=== PATIENT | female | born 1995 | race African-American/Black ===

== ENCOUNTER → 2016-07-28 | Outpatient (CLI) | payer OTHER ==
--- NOTE | 2016-07-28 17:57 | KCIC ---
Left breast ultrasound: Reason for examination: Pea-sized lump at the 2 o'clock position. Patient is 20 weeks . Ultrasound examination of the left breast was performed with attention to the area clinical concern. In the 2 o'clock position 9 centimeters from the nipple and corresponding to the area of clinical concern, there is a hypoechoic circumscribed lesion in parallel orientation measuring 9.6 millimeters in greatest dimension and showing some increased echogenicity centrally and some increased vascular flow centrally. The appearance suggests an intramammary lymph node. In the 2 o'clock position 4 centimeters from the nipple, there is also a small hypoechoic 5.4 by 5.5 millimeter hypoechoic lesion which may represent a small fibroadenoma. No other cystic or solid lesions are seen. No abnormal lymph nodes at the axilla. Impression: Small nodule at the 2 o'clock position 9 centimeters from the nipple which may represent a small intramammary lymph node. Small nodule at the 2 o'clock position 4 centimeters from the nipple which may represent a small fibroadenoma. Recommend re-evaluation in 3 months with ultrasound. BI-RADS category 3: Probably benign. This patient's information has been entered into a reminder system for the patient to be notified with the results of this examination and a target date for her next mammograms. Electronically signed by: Mi Pritchett MD (Jul 28, 2016 17:55:57)
== END | disposition home or self-care (01) ==
LOC: KCIC US 12:53
PROVIDERS: ATTEND Advanced Practice Midwife
DX: O92.29 Other disorders of breast associated with pregnancy and the puerperium (principal); Z3A.20 20 weeks gestation of pregnancy
CPT/HCPCS: 76641

== ENCOUNTER 2016-12-25 03:50 | Emergency (ER) | payer OTHER ==
[~2016-12-25] VITALS: Ht 154.9 cm; Wt 68.9 kg
--- NOTE | 2016-12-25 04:17 | PHYS DOC ---
Past Medical History Past Medical History: No Pertinent History Past Surgical History: No Surgical History Alcohol Use: None Drug Use: None Adult General Chief Complaint Chief Complaint: CHEST WALL PAIN HPI HPI Patient is a 21 year old F who presents with right-sided chest pain. Patient is status post spontaneous vaginal delivery 2 weeks prior and woke up this morning to feed her daughter and developed right-sided chest pain. Patient states her to take a big deep breath. Patient has no cardiac history. Patient has no history of a PE or DVT. Patient denies any fevers. Patient denies any nausea/vomiting/diarrhea. Review of Systems Review of Systems GEN: Denies fevers, chills, sweats HEENT: Denies blurred vision, sore throat CV: chest pain RESP: Denies shortness of air, cough GI: Denies n/v/d NEURO: Denies confusion, dizziness MSK: Denies weakness, joint pain/swelling Current Medications Current Medications Current Medications Medications (Trade) Dose Ordered Sig/Dov Start Time Stop Time Status Last Admin Dose Admin Ketorolac Tromethamine (Toradol Im) 60 mg 1X ONCE 12/25/16 04:30 12/25/16 04:31 DC 12/25/16 04:26 60 MG Allergies Allergies Allergies Coded Allergies Type Severity Reaction Last Updated Verified No Known Drug Allergies 12/25/16 No Physical Exam Physical Exam GEN.: No apparent distress. Alert and oriented. HEENT: Head is normocephalic, atraumatic NECK: Supple. LUNGS: CTAB. HEART: RRR, S1, S2 present. Peripheral pulses intact ABDOMEN: Soft, nontender. Positive bowel sounds. EXTREMITIES: Without any cyanosis. NEUROLOGIC: Normal speech, normal tone PSYCHIATRIC: Normal affect, normal mood. SKIN: No ulcerations Current Patient Data Vital Signs Vital Signs Date Time Temp Pulse Resp B/P (MAP) Pulse Ox O2 Delivery O2 Flow Rate FiO2 12/25/16 04:00 98.0 61 122/85 (97) 98 Room Air 98.0 Lab Values Laboratory Tests Test 12/25/16 05:20 D-Dimer (Mildred) 0.30 ug/mlFEU (0.00-0.50) EKG EKG 0425: Normal sinus rhythm rate of 62 no STEMI [] Radiology/Procedures Radiology/Procedures Chest x-ray NAD [] Course & Med Decision Making Course & Med Decision Making Pertinent Labs and Imaging studies reviewed. (See chart for details) ED course: Patient was seen and examined emergency room chest x-ray, EKG, d-dimer was ordered 0556: Patient was reexamined which her chest pain is resolved patient feels much better. Updated patient on x-ray EKG results. Patient is stable to be discharged home. MDM: After reviewing the chart, CC/HPI/PMH, physical exam, [lab results], [ radiological results], I do not believe the patient's having acute PA, PE, low suspicion for acute thoracic aortic dissection. On reexamination the patient is better and she is ready to go home. Recommended short-term follow-up with her PCP in one to 2 days. Additional verbal discharge instructions were provided to the patient and that if symptoms get worse or any new symptoms arise that are worrisome to the patient she is to return to the emergency room immediately [] Dragon Disclaimer Dragon Disclaimer This electronic medical record was generated, in whole or in part, using a voice recognition dictation system. Departure Departure Impression: Primary Impression: Chest pain Disposition: 01 HOME, SELF-CARE Condition: IMPROVED Referrals: NO PCP (PCP) Patient Instructions: Chest Pain (Nonspecific) Additional Instructions: Please follow up with your family doctor in the next one to 2 days HAMZAH BETHEA DO Dec 25, 2016 04:17
[2016-12-25] MEDS ORDERED: KETOROLAC TROMETHAMINE 60 MG/2 ML INJ. IM ONE (04:30)
[2016-12-25 06:35] VITALS: BP 149/74
--- NOTE | 2016-12-25 09:24 | RAD ---
Indication chest pain. PA and lateral views of the chest were obtained. No prior imaging of the chest is available. Preliminary critical results were communicated to Dr. Velasquez fall. Pain. AP oblique and lateral views of the right elbow were obtained., in the emergency room, at 0915. No prior imaging of the chest is available. The heart and pulmonary vessels are normal. The lungs are clear. There is pneumoperitoneum below the right hemidiaphragm. The etiology is unclear but ruptured viscus is not excluded. There is no pleural fluid. No pneumothorax is seen. IMPRESSION: Clear chest. Pneumoperitoneum
--- NOTE | 2016-12-25 10:11 | EKG ---
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
== END 2016-12-25 06:39 | disposition home or self-care (01) ==
LOC: ER 03:50
DX: O90.89 Other complications of the puerperium, not elsewhere classified (principal); R07.89 Other chest pain
CPT/HCPCS: 36415; 71020; 85379; 93005; 96372; 99285; J1885

== ENCOUNTER 2017-04-12 16:09 | Emergency (ER) | payer OTHER ==
[~2017-04-12] VITALS: Ht 154.9 cm; Wt 73.5 kg
[2017-04-12 16:25] VITALS: BP 110/81
[2017-04-12] MEDS ORDERED: predniSONE 20 MG TABLET PO ONE (16:30)
[2017-04-12] MEDS ORDERED: FAMOTIDINE 20 MG TABLET. PO ONE (16:30)
[2017-04-12] MEDS ORDERED: diphenhydrAMINE HCL 25 MG CAPSULE PO ONE (16:30)
[2017-04-12] MEDS ORDERED: FAMO20TA5 PO (16:35)
[2017-04-12] MEDS ORDERED: PRED50TA PO (16:35)
[2017-04-12] MEDS ORDERED: DIPH25CA58 PO (16:35)
--- NOTE | 2017-04-12 16:36 | PHYS DOC ---
Past Medical History Past Medical History: No Pertinent History Past Surgical History: No Surgical History Alcohol Use: None Drug Use: None Adult General Chief Complaint Chief Complaint: ALLERGIC REACTION HPI HPI Patient is a 21 year old female who presents with a rash on her face that began today after holding a guinea pig. Patient denies any difficulty breathing or swallowing. Denies any throat swelling or lip swelling or tongue swelling. Review of Systems Review of Systems Constitutional: Denies fever or chills [] Eyes: Denies change in visual acuity, redness, or eye pain [] HENT: Denies nasal congestion or sore throat [] Respiratory: Denies cough or shortness of breath [] Cardiovascular: No additional information not addressed in HPI [] GI: Denies abdominal pain, nausea, vomiting, bloody stools or diarrhea [] : Denies dysuria or hematuria [] Musculoskeletal: Denies back pain or joint pain [] Integument: rash on her face Neurologic: Denies headache, focal weakness or sensory changes [] All other systems were reviewed and found to be within normal limits, except as documented in this note. Allergies Allergies Allergies Coded Allergies Type Severity Reaction Last Updated Verified No Known Drug Allergies 12/25/16 No Physical Exam Physical Exam Constitutional: Well developed, well nourished, no acute distress, non-toxic appearance. [] HENT: Normocephalic, atraumatic, bilateral external ears normal, oropharynx moist, no oral exudates, nose normal. Airway is open. Eyes: PERRLA, EOMI, conjunctiva normal, no discharge. [] Neck: Normal range of motion, no tenderness, supple, no stridor. [] Cardiovascular:Heart rate regular rhythm, no murmur [] Lungs & Thorax: Bilateral breath sounds clear to auscultation [] Abdomen: Bowel sounds normal, soft, no tenderness, no masses, no pulsatile masses. [] Skin: Warm, dry, mild amount of nonerythematous rash on patient's face. [] Back: No tenderness, no CVA tenderness. [] Extremities: No tenderness, no cyanosis, no clubbing, ROM intact, no edema. [] Neurologic: Alert and oriented X 3, normal motor function, normal sensory function, no focal deficits noted. [] Psychologic: Affect normal, judgement normal, mood normal. [] EKG EKG [] Radiology/Procedures Radiology/Procedures [] Course & Med Decision Making Course & Med Decision Making Pertinent Labs and Imaging studies reviewed. (See chart for details) Patient has contact dermatitis rash on her face after touching a guinea pig. She was given prednisone Pepcid and Benadryl in the ED and discharged with the same. Provided return precautions including the need to return to the ED if she develops any difficulty breathing, throat tongue or lip swelling. Dragon Disclaimer Dragon Disclaimer This electronic medical record was generated, in whole or in part, using a voice recognition dictation system. Departure Departure Impression: Primary Impression: Contact dermatitis Disposition: HOME, SELF-CARE Condition: STABLE Referrals: UNKNOWN PCP NAME (PCP) follow up with your doctor in one week Patient Instructions: Contact Dermatitis, [id number] Additional Instructions: You were seen for contact dermatitis rash. Please take Benadryl every 4 hours, prednisone daily and Pepcid. Please return to the Ed if you have any difficulty breathing, throat, tongue or lip swelling. Follow up with your doctor in one week. Scripts Famotidine (FAMOTIDINE) 20 Mg Tablet 20 MG PO DAILY, #14 TAB Prov: HARRY MORAN APRN 04/12/17 Prednisone (PREDNISONE) 50 Mg Tablet 1 TAB PO DAILY, #4 TAB Prov: HARRY MORAN APRN 04/12/17 Diphenhydramine Hcl (BENADRYL) 25 Mg Capsule 1 CAP PO Q4HRS W/A Y for RASH, #30 CAP 1 Refill Prov: HARRY MORAN APRN 04/12/17 Problem Qualifiers Primary Impression: Contact dermatitis Contact dermatitis type: unspecified Contact dermatitis trigger: unspecified trigger Qualified Codes: L25.9 - Unspecified contact dermatitis, unspecified cause HARRY MORAN APRN Apr 12, 2017 16:36
== END 2017-04-12 16:55 | disposition home or self-care (01) ==
LOC: ER 16:09
DX: L25.9 Unspecified contact dermatitis, unspecified cause (principal)
CPT/HCPCS: 99284; J7512; Q0163

== ENCOUNTER → 2017-05-24 | Outpatient (CLI) | payer OTHER | END | disposition home or self-care (01) | LOC: KCIC US 14:42 | DX: N63.21 Unspecified lump in the left breast, upper outer quadrant (principal) | CPT/HCPCS: 76641 ==

== ENCOUNTER 2017-06-26 10:06 | Emergency (ER) | payer SELFPAY, OTHER ==
[2017-06-26 11:09] LABS: INFLUENZA A PATIENT NEGATIVE (NEGATIVE); INFLUENZA B PATIENT NEGATIVE (NEGATIVE); OBC FLU VALID
== END 2017-06-26 11:41 | disposition home or self-care (01) ==
LOC: ER 10:06
DX: J06.9 Acute upper respiratory infection, unspecified (principal); B34.9 Viral infection, unspecified
CPT/HCPCS: 87804; 87804-59; 99284

== ENCOUNTER 2017-10-09 20:34 | Emergency (ER) | payer SELFPAY ==
[2017-10-09] MEDS: SMZ/TMP 800/160MG TABLET. PO (21:24)
[2017-10-09] MEDS: CEPHALEXIN 250 MG CAPSULE. PO (21:24)
[2017-10-09] MEDS: IBUPROFEN 800 MG TABLET. PO (21:25)
== END 2017-10-09 21:29 | disposition home or self-care (01) ==
LOC: ER 20:34
DX: L03.116 Cellulitis of left lower limb (principal)
CPT/HCPCS: 99284

== ENCOUNTER 2018-07-20 08:18 | Emergency (ER) | payer SELFPAY ==
[~2018-07-20] VITALS: Ht 152.4 cm; Wt 70.3 kg
[~2018-07-20 08:18] MED LIST: BENZ100C PO; CEPH-264 PO; DIPH25CA58 PO; FAMO20TA5 PO; IBUP-1060 PO; PRED50TA PO; PROAIR RESPICL90 MCG IH; SULF1TAB24 PO
--- NOTE | 2018-07-20 08:48 | PHYS DOC ---
Past Medical History Past Medical History: No Pertinent History Past Surgical History: No Surgical History Alcohol Use: None Drug Use: None Adult General Chief Complaint Chief Complaint: RIB PAIN [facility] HPI Patient is a 22 year old female with no significant medical history who presents to the ED today complaining of 8 out of 10 sharp intermittent left lateral mid rib pain that began a week ago, patient states the pain is worse when she coughs or takes a deep breath. Denies any known injury. She states she' s been coughing for a couple days. Patient states she does not know if she is or not, her last menstrual cycle was May 30, 2018. Patient denies any abdominal pain, nausea, vomiting. Denies any shortness of breath. Patient is not on any control hormones, patient denies any unilateral leg pain, denies any recent hospitalization for surgery, denies any hemoptysis, denies any previous history of PEs or DVTs. Review of Systems Review of Systems Constitutional: Denies fever or chills [] Eyes: Denies change in visual acuity, redness, or eye pain [] HENT: Denies nasal congestion or sore throat [] Respiratory: Reports left lateral rib pain and cough denies shortness of breath [] Cardiovascular: No additional information not addressed in HPI [] GI: Denies abdominal pain, nausea, vomiting, bloody stools or diarrhea [] : Denies dysuria or hematuria [] Musculoskeletal: Denies back pain or joint pain [] Integument: Denies rash or skin lesions [] Neurologic: Denies headache, focal weakness or sensory changes [] All other systems were reviewed and found to be within normal limits, except as documented in this note. Allergies Allergies Allergies Coded Allergies Type Severity Reaction Last Updated Verified No Known Drug Allergies 12/25/16 No Physical Exam Physical Exam Constitutional: Well developed, well nourished, no acute distress, non-toxic appearance. [] HENT: Normocephalic, atraumatic, bilateral external ears normal, oropharynx moist, no oral exudates, nose normal. [] Eyes: PERRLA, EOMI, conjunctiva normal, no discharge. [] Neck: Normal range of motion, no tenderness, supple, no stridor. [] Cardiovascular:Heart rate regular rhythm, no murmur [] Lungs & Thorax: Bilateral breath sounds clear to auscultation [] Abdomen: Bowel sounds normal, soft, no tenderness, no masses, no pulsatile masses. [] Skin: Warm, dry, no erythema, no rash. [] Back: No tenderness, no CVA tenderness. [] Extremities: No tenderness, no cyanosis, no clubbing, ROM intact, no edema. [] Neurologic: Alert and oriented X 3, normal motor function, normal sensory function, no focal deficits noted. [] Psychologic: Affect normal, judgement normal, mood normal. [] Current Patient Data Vital Signs Vital Signs Date Time Temp Pulse Resp B/P (MAP) Pulse Ox O2 Delivery O2 Flow Rate FiO2 07/20/18 08:50 98.1 64 16 101/57 (72) 98 Room Air 98.1 Lab Values Laboratory Tests Test 07/20/18 08:33 07/20/18 08:46 Urine Collection Type Unknown Urine Color Yellow Urine Clarity Clear Urine pH 5.5 Urine Specific [place] 1.015 Urine Protein Negative mg/dL (NEG-TRACE) Urine Glucose (UA) Negative mg/dL (NEG) Urine Ketones (Stick) Negative mg/dL (NEG) Urine Blood Negative (NEG) Urine Nitrite Negative (NEG) Urine Bilirubin Negative (NEG) Urine Urobilinogen Dipstick 1.0 mg/dL (0.2 mg/dL) Urine Leukocyte Esterase Negative (NEG) Urine RBC 0 /HPF (0-2) Urine WBC 1-4 /HPF (0-4) Urine Squamous Epithelial Cells Many /LPF Urine Bacteria Few /HPF (0-FEW) POC Urine HCG, Qualitative Hcg positive (Negative) EKG EKG [] Radiology/Procedures Radiology/Procedures [] Course & Med Decision Making Course & Med Decision Making Pertinent Labs and Imaging studies reviewed. (See chart for details) This is a 22-year-old female patient presenting to the ED today with left lateral rib pain worse on deep breaths. Also complaining of a cough. No known injury. Positive urine hCG. Informed patient she is . She started stating we can do a chest x-ray regardless of her because she is going to perform an . Informed patient we would prefer not to do a chest x-ray on somebody who is , if she is planning to perform an we will give her time to think about her plan and then after the we can do a chest xray, informed her it is too early to assume she will proceed with the . Right now her lungs are clear, temperature 98.1 heart rate 64 respirations 16 O2 sats 98% on room air BP 101/57. Informed patient considering her vitals I do not feel we should push for chest x-ray. She requested her discharge papers. She states she has already been taking hydrocodone from her boyfriend. Informed her right now she is and hydrocodone is not the best thing to take in . Informed her i highly suspect she has Pleurisy. Instructed to f/u with her PCP, She states she'll follow up with an clinic. Dragon Disclaimer Pamellaon Disclaimer This electronic medical record was generated, in whole or in part, using a voice recognition dictation system. Departure Departure Impression: Primary Impression: Pleurisy Disposition: 01 HOME, SELF-CARE Condition: STABLE Referrals: RONALD VALENZUELA APRN (PCP) follow up with your OBGYN for your Patient Instructions: Pleurisy, [id number] Additional Instructions: You were evaluated in the emergency room for rib pain, you are also . Please follow-up with your own COMPUTER TECHNICIAN as soon as possible. Use Tylenol for pain. Hydrocodone is not the best medicine to use when . Scripts Albuterol Sulfate (VENTOLIN HFA INHALER) 18 Gm Hfa.aer.ad 2 PUFF INH Q4HRS for FOR ASTHMA, #1 INHALER 0 Refills Prov: HARRY MORAN APRN 07/20/18 HARRY MORAN APRN Jul 20, 2018 08:48
[2018-07-20 08:49] LABS: BILIRUBIN,URINE NEGATIVE (NEG); CLARITY,URINE CLEAR; COLOR,URINE YELLOW; NITRITE,URINE NEGATIVE (NEG); PH,URINE 5.5; PROTEIN,URINE NEGATIVE (NEG-TRACE)
[2018-07-20 08:50] VITALS: BP 101/57
[2018-07-20 09:53] LABS: BACTERIA,URINE FEW /HPF (0-FEW); RBC,URINE 0 /HPF (0-2); SQUAMOUS EPITHELIAL CELL,UR MANY /LPF
[2018-07-20] MEDS ORDERED: VENTOLIN HFA18 GM INH (10:22)
== END 2018-07-20 10:35 | disposition home or self-care (01) ==
LOC: ER 08:18
DX: O99.511 Diseases of the respiratory system complicating pregnancy, first trimester (principal); R09.1 Pleurisy; Z3A.01 Less than 8 weeks gestation of pregnancy
CPT/HCPCS: 81001; 81025; 99283; 99284-25

== ENCOUNTER 2018-07-30 09:28 | Emergency (ER) | payer SELFPAY ==
[~2018-07-30] VITALS: Ht 160 cm; Wt 70.3 kg
[~2018-07-30 09:28] MED LIST changes: +VENTOLIN HFA18 GM INH
--- NOTE | 2018-07-30 09:57 | PHYS DOC ---
Past Medical History Past Medical History: No Pertinent History Past Surgical History: No Surgical History Alcohol Use: None Drug Use: None Adult General Chief Complaint Chief Complaint: RIB PAIN HPI HPI Patient is a 22 year old female who presents with worsening left-sided chest discomfort for the past 2 weeks. Worse with deep breaths. Worse with cough. Denies any fever reports that the pain is severe and sharp. It has not moved in location in the past 2 weeks. Denies any fever. Denies any lower extremity swelling. She was seen for this 2 weeks ago and has not achieved any significant pain relief with the medications administered. It is noted that she had a test that was positive 2 weeks ago. Patient said that she had an elective 2 days ago.[] Review of Systems Review of Systems Constitutional: Denies fever or chills [] Eyes: Denies change in visual acuity, redness, or eye pain [] HENT: Denies nasal congestion or sore throat [] Respiratory: See history of present illness[] Cardiovascular: See history of present illness[] GI: Denies abdominal pain, nausea, vomiting, bloody stools or diarrhea [] : Denies dysuria or hematuria [] Musculoskeletal: Denies back pain or joint pain [] Integument: Denies rash or skin lesions [] Neurologic: Denies headache, focal weakness or sensory changes [] Endocrine: Denies polyuria or polydipsia [] All other systems were reviewed and found to be within normal limits, except as documented in this note. Current Medications Current Medications Current Medications Medications (Trade) Dose Ordered Sig/Dov Start Time Stop Time Status Last Admin Dose Admin Info (CONTRAST GIVEN -- Rx MONITORING) 1 each PRN DAILY PRN 07/30/18 11:00 08/01/18 10:59 Iohexol (Omnipaque 350 Mg/ml) 75 ml 1X ONCE 07/30/18 10:45 07/30/18 10:46 DC 07/30/18 10:59 75 ML Ketorolac Tromethamine (Toradol 15mg Vial) 15 mg 1X ONCE 07/30/18 10:00 07/30/18 10:01 DC 07/30/18 10:12 15 MG Allergies Allergies Allergies Coded Allergies Type Severity Reaction Last Updated Verified No Known Drug Allergies 12/25/16 No Physical Exam Physical Exam Constitutional: Well developed, well nourished, no acute distress, non-toxic appearance. [] HENT: Normocephalic, atraumatic, bilateral external ears normal, oropharynx moist, no oral exudates, nose normal. [] Eyes: PERRLA, EOMI, conjunctiva normal, no discharge. [] Neck: Normal range of motion, no tenderness, supple, no stridor. [] Cardiovascular:Heart rate regular rhythm, no murmur [] Lungs & Thorax: Bilateral breath sounds clear to auscultation, chest has tenderness to palpation anterior axillary line in the sixth to seventh rib area. There is no crepitus, no step-off, no subcutaneous emphysema. [] Abdomen: Bowel sounds normal, soft, no tenderness, no masses, no pulsatile masses. [] Skin: Warm, dry, no erythema, no rash. [] Back: No tenderness, no CVA tenderness. [] Extremities: No tenderness, no cyanosis, no clubbing, ROM intact, no edema. [] Neurologic: Alert and oriented X 3, normal motor function, normal sensory function, no focal deficits noted. [] Psychologic: Affect normal, judgement normal, mood normal. [] Current Patient Data Vital Signs Vital Signs Date Time Temp Pulse Resp B/P (MAP) Pulse Ox O2 Delivery O2 Flow Rate FiO2 07/30/18 09:39 97.7 64 20 112/62 (79) 100 Room Air 97.7 Lab Values Laboratory Tests Test 07/30/18 09:00 07/30/18 10:10 POC Urine HCG, Qualitative Hcg positive (Negative) White Blood Count 5.9 x10^3/uL (4.0-11.0) Red Blood Count 4.06 x10^6/uL (3.50-5.40) Hemoglobin 12.2 g/dL (12.0-15.5) Hematocrit 37.4 % (36.0-47.0) Mean Corpuscular Volume 92 fL (79-100) Mean Corpuscular Hemoglobin 30 pg (25-35) Mean Corpuscular Hemoglobin Concent 33 g/dL (31-37) Red Cell Distribution Width 16.9 % (11.5-14.5) H Platelet Count 213 x10^3/uL (140-400) Neutrophils (%) (Auto) 66 % (31-73) Lymphocytes (%) (Auto) 28 % (24-48) Monocytes (%) (Auto) 5 % (0-9) Eosinophils (%) (Auto) 1 % (0-3) Basophils (%) (Auto) 0 % (0-3) Neutrophils # (Auto) 3.9 x10^3uL (1.8-7.7) Lymphocytes # (Auto) 1.6 x10^3/uL (1.0-4.8) Monocytes # (Auto) 0.3 x10^3/uL (0.0-1.1) Eosinophils # (Auto) 0.1 x10^3/uL (0.0-0.7) Basophils # (Auto) 0.0 x10^3/uL (0.0-0.2) Sodium Level 140 mmol/L (136-145) Potassium Level 3.8 mmol/L (3.5-5.1) Chloride Level 103 mmol/L (98-107) Carbon Dioxide Level 23 mmol/L (21-32) Anion Gap 14 (6-14) Blood Urea Nitrogen 8 mg/dL (7-20) Creatinine 0.6 mg/dL (0.6-1.0) Estimated GFR (Cockcroft-Gault) 148.6 Glucose Level 82 mg/dL (70-99) Calcium Level 8.9 mg/dL (8.5-10.1) Laboratory Tests 07/30/18 10:10 Laboratory Tests 07/30/18 10:10 EKG EKG [] Radiology/Procedures Radiology/Procedures CT arteriogram of the chest HISTORY: Left-sided respiratory chest pain CT arteriogram of the chest was done using 75 mL Omnipaque 350 contrast. Sagittal and coronal MIP images were reconstructed. Thyroid is homogeneous. There is no mediastinal adenopathy. There is no effusion. Visualized portions of the liver and spleen are normal in appearance. Adrenal glands are normal. Lungs are free of infiltrates. There is no effusion. This study is negative for evidence of a pulmonary embolus. Sagittal and coronal MIP images were reconstructed. IMPRESSION: 1. No infiltrates noted. 2. Negative for a pulmonary embolus.[] Course & Med Decision Making Course & Med Decision Making Pertinent Labs and Imaging studies reviewed. (See chart for details) ED course: Patient arrived, was placed in bed, and tolerated exam well. She had IV access established was given IV pain medicine as well as was transported to and from [place] without any complications. After the return of lab and imaging findings, these were discussed with the patient voiced understanding. All questions were answered. Patient was discharged in improved condition. Medical decision making: Patient has a positive test but reports that she had an elective termination 2 days ago. Do not see any evidence of a pneumonia, pneumothorax pulmonary embolism nor other significant life threats. This does not present as a cardiac etiology for this discomfort.[] Dragon Disclaimer Dragon Disclaimer This electronic medical record was generated, in whole or in part, using a voice recognition dictation system. Departure Departure Impression: Primary Impression: Chest pain Disposition: HOME, SELF-CARE Condition: IMPROVED Referrals: RONALD VALENZUELA APRN (PCP) Follow-up in 2 days Patient Instructions: Chest Pain (Nonspecific) Additional Instructions: Follow-up with your regular doctor in 2 days. If you do not have a regular doctor a list of local clinics will be provided for you. Return to the ER if worsening discomfort or any other concerns. Scripts Prednisone (PREDNISONE) 50 Mg Tablet 50 MG PO DAILY for 7 Days, #7 TAB Prov: JAYE SIMONS DO 07/30/18 Diflunisal (DIFLUNISAL) 500 Mg Tablet 500 MG PO BID, #20 TAB Prov: JAYE SIMONS DO 07/30/18 Problem Qualifiers Primary Impression: Chest pain Chest pain type: unspecified Qualified Codes: R07.9 - Chest pain, unspecified JAYE SIMONS DO Jul 30, 2018 09:57
[2018-07-30] MEDS ORDERED: KETOROLAC 15 MG/ML VIAL. IV ONE (10:00)
[2018-07-30 10:26] LABS: BASO % 0 % (0-3); EOS # 0.1 x10^3/uL (0.0-0.7); EOS % 1 % (0-3); HEMATOCRIT 37.4 % (36.0-47.0); HEMOGLOBIN 12.2 g/dL (12.0-15.5); LYMPH # 1.6 x10^3/uL (1.0-4.8); LYMPH % 28 % (24-48); MEAN CORPUSCULAR HEMOGLOBIN 30 pg (25-35); MEAN CORPUSCULAR HGB CONC 33 g/dL (31-37); MEAN CORPUSCULAR VOLUME 92 fL (79-100); MONO # 0.3 x10^3/uL (0.0-1.1); MONO % 5 % (0-9); NEUT # 3.9 x10^3uL (1.8-7.7); NEUT % 66 % (31-73); PLATELET COUNT 213 x10^3/uL (140-400); RED BLOOD COUNT 4.06 x10^6/uL (3.50-5.40); RED CELL DISTRIBUTION WIDTH 16.9 % (11.5-14.5); WHITE BLOOD COUNT 5.9 x10^3/uL (4.0-11.0)
[2018-07-30 10:32] LABS: CALCIUM 8.9 mg/dL (8.5-10.1); CREATININE 0.6 mg/dL (0.6-1.0); GFR 148.6; POTASSIUM 3.8 mmol/L (3.5-5.1)
[2018-07-30] MEDS ORDERED: IOHEXOL 350 MG/ML 100 ML VIAL. IV ONE (10:45)
[2018-07-30] MEDS ORDERED: CONTRAST GIVEN. MC PRN (11:00)
--- NOTE | 2018-07-30 11:26 | RAD ---
CT arteriogram of the chest HISTORY: Left-sided respiratory chest pain CT arteriogram of the chest was done using 75 mL Omnipaque 350 contrast. Sagittal and coronal MIP images were reconstructed. Thyroid is homogeneous. There is no mediastinal adenopathy. There is no effusion. Visualized portions of the liver and spleen are normal in appearance. Adrenal glands are normal. Lungs are free of infiltrates. There is no effusion. This study is negative for evidence of a pulmonary embolus. Sagittal and coronal MIP images were reconstructed. IMPRESSION: 1. No infiltrates noted. 2. Negative for a pulmonary embolus. PQRS Compliance Statement: One or more of the following individualized dose reduction techniques were utilized for this examination: 1. Automated exposure control 2. Adjustment of the mA and/or kV according to patient size 3. Use of iterative reconstruction technique Electronically signed by: Kosta Hebert MD (07/30/2018 11:23 AM) [facility]
[2018-07-30] MEDS ORDERED: DIFL500T PO (11:40)
[2018-07-30] MEDS ORDERED: PRED50TA PO (11:40)
[2018-07-30 12:15] VITALS: BP 108/61
== END 2018-07-30 12:16 | disposition home or self-care (01) ==
LOC: ER 09:28
DX: R07.1 Chest pain on breathing (principal); Z33.2 Encounter for elective termination of pregnancy
CPT/HCPCS: 36415; 71275; 80048; 81025; 84702; 85025; 99284; J1885; Q9967

== ENCOUNTER 2019-06-20 19:10 | Emergency (ER) | payer MEDICAID ==
[~2019-06-20] VITALS: Ht 154.9 cm; Wt 75.0 kg
[~2019-06-20 19:10] MED LIST changes: +DIFL500T PO
[2019-06-20 19:24] VITALS: BP 118/73
--- NOTE | 2019-06-20 19:40 | PHYS DOC ---
Past Medical History Past Medical History: No Pertinent History (JOVI KNIGHT APRN) Past Surgical History: No Surgical History (JOVI KNIGHT APRN) Alcohol Use: None Drug Use: None (JOVI KNIGHT APRN) Attending Signature I have participated in the care of this patient and I have reviewed and agree with all pertinent clinical information above including history, exam, and recommendations. (LEONCIO PACHECO MD) Adult General Chief Complaint Chief Complaint: MULTIPLE COMPLAINTS HPI HPI Patient is a 23 year old healthy appearing female who presents with mid-sternal chest pain and tingling down both arms and in her throat that started 1 hour prior to arrival. The patient denies any medical history. The patient states she has had a runny nose and a dry cough that started ongoing for several days. The patient denies fever, body aches, loss of appetite, sore throat. Patient was sitting on the couch watching a movie when this started. Denies any medical history. Complete ROS were reviewed and found to be within normal limits, except as documented in the HPI (JOVI KNIGHT APRN) Allergies Allergies Allergies Coded Allergies Type Severity Reaction Last Updated Verified No Known Drug Allergies 12/25/16 No (LEONCIO PACHECO MD) Physical Exam Physical Exam Constitutional: Well developed, well nourished, no acute distress, non-toxic appearance. [] HENT: Normocephalic, atraumatic, bilateral external ears normal, oropharynx moist, tonsils are 2+/4 with no oral exudates, nose normal. [] Eyes: PERRLA, EOMI, conjunctiva normal, no discharge. [] Neck: Normal range of motion, no tenderness, supple, no stridor. [] Cardiovascular:Heart rate regular rhythm, no murmur [] Lungs & Thorax: Bilateral breath sounds clear to auscultation [] Abdomen: Bowel sounds normal, soft, no tenderness, no masses, no pulsatile masses. [] Skin: Warm, dry, no erythema, no rash. [] Back: No tenderness, no CVA tenderness. [] Extremities: No tenderness, no cyanosis, no clubbing, ROM intact, no edema. [] Neurologic: Alert and oriented X 3, normal motor function, normal sensory fu nction, no focal deficits noted. [] Psychologic: Affect normal, judgement normal, mood normal. [] (JOVI KNIGHT APRN) Current Patient Data Vital Signs Vital Signs Date Time Temp Pulse Resp B/P (MAP) Pulse Ox O2 Delivery O2 Flow Rate FiO2 06/20/19 19:24 98.5 65 18 118/73 (88) 99 Room Air 98.5 (LEONCIO PACHECO MD) EKG EKG [] (JOVI KNIGHT APRN) Radiology/Procedures Radiology/Procedures [] (JOVI KNIGHT APRN) Course & Med Decision Making Course & Med Decision Making Pertinent Labs and Imaging studies reviewed. (See chart for details) The patient appears anxious on examination and her foot is tapping on the floor. The symptoms appear to line up with an anxiety reaction. Will d/c home to follow up with primary care provider. (JOVI KNIGHT APRN) Dragon Disclaimer Dragon Disclaimer This electronic medical record was generated, in whole or in part, using a voice recognition dictation system. (JOVI KNIGHT APRN) Departure Departure Impression: Primary Impression: Anxiety Disposition: 01 HOME, SELF-CARE Condition: STABLE Referrals: UNKNOWN PCP NAME (PCP) Patient Instructions: Anxiety and Panic Attacks Additional Instructions: Thank you for visiting [facility]. We appreciate you trusting us with your care. If any additional problems come up don't hesitate to return to visit us. Please follow up with your primary care provider so they can plan additional care if needed and know about the problem that you had. If symptoms worsen come back to the Emergency Department. Any concerning symptoms that start such as chest pain, shortness of air, weakness or numbness on one side of the body, running high fevers or any other concerning symptoms return to the ER. JOVI KNIGHT APRN Jun 20, 2019 19:40 LEONCIO PACHECO MD Jun 21, 2019 04:11
== END 2019-06-20 19:45 | disposition home or self-care (01) ==
LOC: ER 19:10
DX: F41.9 Anxiety disorder, unspecified (principal)
CPT/HCPCS: 99281

== ENCOUNTER 2020-03-12 05:43 | Emergency (ER) | payer BC, MEDICAID ==
[~2020-03-12] VITALS: Ht 154.9 cm; Wt 81.8 kg
[2020-03-12 05:45] VITALS: BP 127/91
--- NOTE | 2020-03-12 06:49 | ED.ADGEN ---
Past Medical History Past Medical History: No Pertinent History Past Surgical History: Other Additional Past Surgical Histo: Smoking Status: Current Every Day Smoker Alcohol Use: Occasionally Drug Use: None General Adult EDM: Chief Complaint: FINGER INJURY HPI: HPI: Patient is 24-year-old female who presents to the emergency room with a ring stuck on her finger. She got the ring yesterday. She woke up this morning and her finger was swollen. She is try to get it off with soap without success. She states that it is very painful. Review of Systems: Review of Systems: Negative other than noted Allergies: Allergies: Allergies Coded Allergies Type Severity Reaction Last Updated Verified No Known Drug Allergies 12/25/16 No Physical Exam: PE: General: Awake, alert, NAD. Well Nourished, well hydrated. Cooperative HEENT: Atraumatic, EOMI, PERRL, airway patent, moist oral mucosa Neck: Supple, trachea midline MSK: No obvious deformities Skin: Warm, dry. Left second finger: Ring with distal swelling Neuro: A&O x3, speech NL, sensory and motor grossly intact, no focal deficits Psych: Normal affect, normal mood, not suicidal or homicidal Current Patient Data: Vital Signs: Vital Signs Date Time Temp Pulse Resp B/P (MAP) Pulse Ox O2 Delivery O2 Flow Rate FiO2 03/12/20 05:45 97.8 85 24 127/91 (103) 100 Room Air 97.8 EKG: EKG: [] Heart Score: Risk Factors: Risk Factors: DM, Current or recent (<one month) smoker, HTN, HLP, family history of CAD, obesity. Risk Scores: Score 0 - 3: 2.5% MACE over next 6 weeks - Discharge Home Score 4 - 6: 20.3% MACE over next 6 weeks - Admit for Clinical Observation Score 7 - 10: 72.7% MACE over next 6 weeks - Early Invasive Strategies Radiology/Procedures: Radiology/Procedures: [] Course & Med Decision Making: Course & Med Decision Making Pertinent Labs and Imaging studies reviewed. (See chart for details) Ring cutters were used on the ring with success. Patient will have some bruising but does not appear to have any wounds. Discussed wound care. Patient's test results and vitals while in the ED were fully reviewed and discussed with the patient. Patient is stable and at this time does not need admission to the hospital. We have discussed strict return precautions and the importance of following up with their Primary Care Physician. Patient stated understanding and was given an opportunity to ask any questions. Patient is in agreement with plan. Lakhwinder Disclaimer: Lakhwinder Disclaimer: This electronic medical record was generated, in whole or in part, using a voice recognition dictation system. Departure Departure Impression: Primary Impression: External constriction of finger Disposition: 01 DC HOME SELF CARE/HOMELESS Condition: IMPROVED Referrals: NO PCP (PCP) Patient Instructions: Crush Injury, Fingers or Toes ZAK MENDOZA MD Mar 12, 2020 06:49
== END 2020-03-12 07:15 | disposition home or self-care (01) ==
LOC: ER 05:43
DX: S60.440A External constriction of right index finger, initial encounter (principal); F17.200 Nicotine dependence, unspecified, uncomplicated; X58.XXXA Exposure to other specified factors, initial encounter; Y93.89 Activity, other specified; Y92.89 Other specified places as the place of occurrence of the external cause; Y99.8 Other external cause status
CPT/HCPCS: 99284